=== PATIENT | female | born 1965 | race Caucasian/White ===

== ENCOUNTER 2016-07-13 13:08 | Emergency (ER) | payer MEDICAID ==
[2016-07-13 13:09] VITALS: BMI 26.9
[2016-07-13 13:21] VITALS: RESP 16
[2016-07-13 13:46] VITALS: BP 108/59; PULSE 68; TEMP 97.2; O2SAT 100
[2016-07-13] MEDS ORDERED: guaiFENesin 100 mg/5 ml Syrup UD PO STA (13:57)
--- NOTE | 2016-07-13 13:59 | C.PDOC ---
History Of Present Illness 51 y/o female presents to ED with complaint of digitally and positionally reproducible right sided chest wall pain onset yesterday. Patient reports she had a cough last week which has since resolved. Denies fever, chills, rash, SOB , nausea, vomiting, or other associated symptoms. Time Seen by Provider: 07/13/16 13:48 Chief Complaint (Nursing): Chest Pain History Per: Patient History/Exam Limitations: no limitations Onset/Duration Of Symptoms: Days Current Symptoms Are (Timing): Still Present Quality: "Pain" Associated Symptoms: denies: Dyspnea, Diaphoresis Exacerbating Factors: Movement Recent travel outside of the [place]: No Past Medical History Reviewed: Historical Data, Nursing Documentation, Vital Signs Vital Signs: Last Vital Signs Temp 97.2 F L 07/13/16 13:42 Pulse 68 07/13/16 13:42 Resp 16 07/13/16 13:42 BP 108/59 L 07/13/16 14:12 Pulse Ox 100 07/13/16 13:59 - Medical History PMH: Asthma, Diabetes, HTN, Hypercholesterolemia, Hypothyroidism - [facility] Procedures COLONOSCOPY (08/23/14) PHYSICAL THERAPY NEC (11/05/13) Family History: States: Unknown Family Hx - Social History Hx Tobacco Use: No Hx Alcohol Use: No Hx Substance Use: No - Immunization History Hx Tetanus Toxoid Vaccination: No Hx Influenza Vaccination: No Hx Pneumococcal Vaccination: No Review Of Systems Except As Marked, All Systems Reviewed And Found Negative. Constitutional: Negative for: Fever, Chills Respiratory: Negative for: Cough (resolved), Shortness of Breath, Wheezing Gastrointestinal: Negative for: Nausea, Vomiting, Abdominal Pain Musculoskeletal: Positive for: Other (right sided chest wall pain ) Skin: Negative for: Rash Physical Exam - Physical Exam Appears: Non-toxic, No Acute Distress Skin: Normal Color, Warm, Dry, No Rash Head: Atraumatic, Normacephalic Chest: Symmetrical, Tenderness (digitally reproducible tenderness to R T2 area ) Cardiovascular: Rhythm Regular, No Murmur Respiratory: Normal Breath Sounds, No Accessory Muscle Use, No Rales, No Rhonchi , No Wheezing Gastrointestinal/Abdominal: Soft, No Tenderness Back: Normal Inspection Extremity: Normal ROM, Capillary Refill (< 2 sec. ) Neurological/Psych: Oriented x3, Normal Speech, Normal Cognition ED Course And Treatment ECG: Interpreted By Me ECG Rhythm: Sinus Rhythm ECG Interpretation: Normal Rate From EC (bpm) O2 Sat by Pulse Oximetry: 100 (RA) Pulse Ox Interpretation: Normal Medical Decision Making Medical Decision Making: mild cough last week, resolved- mild R upper anterior chest discomfort is positionally and digitally reproducable normal EKG and lung exam, without rash, c/w costochondritis. Disposition Doctor Will See Patient In The: Office Counseled Patient/Family Regarding: Studies Performed, Diagnosis - Disposition Referrals: Amy Mc MD [Medical Doctor] - Disposition: HOME/ ROUTINE Disposition Time: 13:59 Condition: GOOD Additional Instructions: ice packs 1/2 hour per hour, nothing hot. Motrin 400-600 mg every 6 hours as needed Continue Mucinex cough medicines as needed- per package instructions. follow-up with Dr. Mc as needed. Instructions: Costochondritis (ED) - Clinical Impression Clinical Impression: Chest discomfort - Scribe Statement The provider has reviewed the documentation as recorded by the Jimenez Rios Provider Attestation: All medical record entries made by the Jimenez were at my direction and personally dictated by me. I have reviewed the chart and agree that the record accurately reflects my personal performance of the history, physical exam, medical decision making, and the department course for this patient. I have also personally directed, reviewed, and agree with the discharge instructions and disposition.
[2016-07-13] MEDS ORDERED: guaiFENesin 100 mg/5 ml Syrup UD ONE (14:18)
--- NOTE | 2016-07-18 13:56 | CARD ---
APPROVED REPORT EKG Measurement Heart [id number] CA 140P55 [id number] <Conclusion> Normal sinus rhythm Possible Left atrial enlargement Nonspecific T wave abnormality Abnormal ECG
== END 2016-07-13 14:28 | disposition home or self-care (01) ==
LOC: C.ER 13:08
DX: R07.89 Other chest pain (principal)

== ENCOUNTER 2016-09-22 11:36 | Emergency (ER) | payer MEDICAID ==
[2016-09-22 11:37] VITALS: BMI 26.9
[2016-09-22 11:49] VITALS: TEMP 97.3
[2016-09-22] MEDS ORDERED: Sodium Chloride 0.9% 1,000 ML IV ONE (12:04)
[2016-09-22] MEDS ORDERED: (Novolin R) Insulin Human Regular 100 units/ml vial IV ONE (12:06)
[2016-09-22] MEDS ORDERED: Sodium Chloride 0.9% 1,000 ML ONE (12:22)
[2016-09-22] MEDS ORDERED: (Novolin R) Insulin Human Regular 100 units/ml vial ONE (12:22)
[2016-09-22 12:26] LABS: BASO # 0.1 K/uL (0.0-0.2); BASO % 0.8 % (0.0-2.0); EOS # 0.4 K/uL (0.0-0.7); EOS % 4.3 % (0.0-4.0); HEMATOCRIT 41.8 % (34.0-47.0); LYMPH # 3.2 K/uL (1.0-4.3); LYMPH % 37.7 % (20.0-40.0); MEAN CELL VOLUME 89.3 fL (81.0-99.0); MEAN CORPUSCULAR HEMOGLOBIN 30.5 pg (27.0-31.0); MEAN CORPUSCULAR HGB CONC 34.2 g/dL (33.0-37.0); MEAN PLATELET VOLUME 9.2 fL (7.2-11.7); MONO # 0.5 K/uL (0.0-0.8); MONO % 6.1 % (0.0-10.0); RED CELL DISTRIBUTION WIDTH 12.9 % (11.5-14.5); WHITE BLOOD COUNT 8.6 K/uL (4.8-10.8)
[2016-09-22 12:32] LABS: URINE BACTERIA RARE (<OCC); URINE BILIRUBIN NEGATIVE (NEGATIVE); URINE BLOOD 1+ (NEGATIVE); URINE COLOR Yellow (YELLOW); URINE GLUCOSE (UA) 3+ mg/dL (Normal); URINE KETONE NEGATIVE (NEGATIVE); URINE LEUKOCYTE ESTERASE TRACE Leu/uL (Negative); URINE PROTEIN NEGATIVE (NEGATIVE); URINE UROBILINOGEN NORMAL mg/dL (0.2-1.0); WBC URINE 2 /hpf (0-5)
--- NOTE | 2016-09-22 12:32 | C.PDOC ---
History Of Present Illness Patient is a 51 y/o female that presents to the ED for evaluation of elevated blood sugar level at home this morning. Patient reports taking her regular dose of Metformin this morning, but states her sugar level still remained high, and was noted to be 348 in triage. Patient also reports vaginal discomfort including itchiness, and pain upon urination for the past week. Otherwise, denies any vaginal discharge, fever, chills, abdominal pain, headache, dizziness , or any other associated symptoms at this time. PMD:Dr. Amy Mc Time Seen by Provider: 09/22/16 11:57 Chief Complaint (Nursing): High Blood Sugar History Per: Patient History/Exam Limitations: no limitations Onset/Duration Of Symptoms: Days (1 week) Current Symptoms Are (Timing): Still Present Severity: None Pain Scale Rating Of: 0 Current Diabetic Medications: Oral Medication (Metformin) Associated Infectious Symptoms: Dysuria. denies: Cough, Sore Throat, Sinus Congestion, Urinary Urgency, Urinary Frequency, Nausea, Vomiting, Diarrhea Treatment Prior To Provider Evaluation: Accucheck Recent travel outside of the [place]: No Additional History Per: Patient Past Medical History Reviewed: Historical Data, Nursing Documentation, Vital Signs Vital Signs: Last Vital Signs Temp 97.3 F L 09/22/16 11:47 Pulse 71 09/22/16 13:54 Resp 18 09/22/16 13:54 BP 100/62 09/22/16 13:54 Pulse Ox 96 09/22/16 13:54 - Medical History PMH: Asthma, Diabetes, HTN, Hypercholesterolemia, Hypothyroidism Denies: Chronic Kidney Disease - [facility] Procedures COLONOSCOPY (08/23/14) PHYSICAL THERAPY NEC (11/05/13) Family History: States: Unknown Family Hx - Social History Hx Tobacco Use: No Hx Alcohol Use: No Hx Substance Use: No - Immunization History Hx Tetanus Toxoid Vaccination: No Hx Influenza Vaccination: No Hx Pneumococcal Vaccination: No Review Of Systems Except As Marked, All Systems Reviewed And Found Negative. Constitutional: Negative for: Fever, Chills Cardiovascular: Negative for: Chest Pain, Palpitations Respiratory: Negative for: Shortness of Breath Gastrointestinal: Negative for: Nausea, Vomiting, Abdominal Pain, Diarrhea Genitourinary: Positive for: Dysuria, Other (itchiness to vagina). Negative for : Frequency, Incontinence, Hematuria, Vaginal Discharge, Vaginal Bleeding, Pelvic Pain Musculoskeletal: Negative for: Back Pain Neurological: Negative for: Headache, Dizziness Physical Exam - Physical Exam Appears: Non-toxic, No Acute Distress Skin: Normal Color, Warm, Dry Head: Atraumatic, Normacephalic Eye(s): bilateral: Normal Inspection, EOMI Neck: Normal ROM, Supple Chest: Symmetrical Cardiovascular: Rhythm Regular, No Murmur Respiratory: Normal Breath Sounds, No Rales, No Rhonchi, No Wheezing Gastrointestinal/Abdominal: Soft, No Tenderness Extremity: Normal ROM Neurological/Psych: Oriented x3, Normal Speech, Normal Cognition ED Course And Treatment - Laboratory Results Result Diagrams: 09/22/16 12:23 09/22/16 12:23 Lab Interpretation: Abnormal O2 Sat by Pulse Oximetry: 98 (on RA) Pulse Ox Interpretation: Normal Progress Note: Labs ordered and reviewed. Patient was treated with IV fluids, and Insulin IV. Labs show hyperglycemia, no acidosis or ketones to suggest DKA. Lab repeated and improvement of glucose. On reassessment, patient is resting comfortably, no acute distress. Patient advised to continue with medications and to follow up with PCP Disposition Counseled Patient/Family Regarding: Studies Performed, Diagnosis, Need For Followup - Disposition Referrals: Amy Mc MD [Medical Doctor] - Disposition: HOME/ ROUTINE Disposition Time: 13:43 Condition: STABLE Additional Instructions: Continue taking your usual diabetic medications Follow up with your primary medical doctor or clinic in 2-5 days for further evaluation. Return to the emergency department at any time if symptoms persist or worsen. 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 - Scribe Statement The provider has reviewed the documentation as recorded by the Vanessaibe Elba Velasquez All medical record entries made by the Jimenez were at my direction and personally dictated by me. I have reviewed the chart and agree that the record accurately reflects my personal performance of the history, physical exam, medical decision making, and the department course for this patient. I have also personally directed, reviewed, and agree with the discharge instructions and disposition.
[2016-09-22 12:34] LABS: RBC URINE 5 /hpf (0-3)
[2016-09-22 12:37] LABS: CHLORIDE 99 mmol/L (98-107); SODIUM 134 mmol/L (132-148)
[2016-09-22 12:38] LABS: POTASSIUM 4.1 mmol/L (3.6-5.2)
[2016-09-22 12:40] LABS: ALB/GLOB RATIO 1.4 (1.0-2.1); ALKALINE PHOSPHATASE 95 U/L (38-126); ALT/SGPT 24 U/L (9-52); AST/SGOT 29 U/L (14-36); BILIRUBIN,TOTAL 1.1 mg/dL (0.2-1.3); BLOOD UREA NITROGEN 13 mg/dL (7-17); CARBON DIOXIDE 21 mmol/L (22-30); GFR AFRICAN-AMERICAN > 60; GLUCOSE,RANDOM 289 mg/dL (65-105); TOTAL PROTEIN 6.9 g/dL (6.3-8.3)
[2016-09-22 12:41] LABS: CALCIUM 8.7 mg/dl (8.6-10.4)
[2016-09-22 13:55] VITALS: BP 100/62; PULSE 71; RESP 18
[2016-09-22 17:39] VITALS: O2SAT 98
== END 2016-09-22 13:55 | disposition home or self-care (01) ==
LOC: C.ER 11:36
DX: E11.65 Type 2 diabetes mellitus with hyperglycemia (principal); I10 Essential (primary) hypertension; E78.00 Pure hypercholesterolemia, unspecified; E03.9 Hypothyroidism, unspecified
CPT/HCPCS: 80053; 81001; 82009; 82948; 85025; 96360; 99285; J7040

== ENCOUNTER 2017-04-27 12:58 | Emergency (ER) | payer MEDICAID ==
[2017-04-27 12:58] VITALS: BMI 26.9
[2017-04-27] MEDS ORDERED: Albuterol-Ipratrop 3 mg / 0.5 (3 ml) UD INH STA ×2 (14:04→14:41)
[2017-04-27] MEDS ORDERED: Albuterol-Ipratrop 3 mg / 0.5 (3 ml) UD ONE ×2 (14:18→14:51)
[2017-04-27 16:09] VITALS: BP 102/63; PULSE 99; RESP 18; TEMP 98; O2SAT 99
--- NOTE | 2017-04-27 16:11 | C.PDOC ---
Time Seen by Provider: 04/27/17 13:51 Chief Complaint (Nursing): Cough, Cold, Congestion Past Medical History Vital Signs: Last Vital Signs Temp 98 F 04/27/17 16:08 Pulse 99 H 04/27/17 16:08 Resp 18 04/27/17 16:08 BP 102/63 04/27/17 16:08 Pulse Ox 99 04/27/17 16:12 - Medical History PMH: Asthma, Diabetes, HTN, Hypercholesterolemia, Hypothyroidism Denies: Chronic Kidney Disease - [facility] Procedures COLONOSCOPY (08/23/14) PHYSICAL THERAPY NEC (11/05/13) Family History: States: Unknown Family Hx - Social History Hx Tobacco Use: No Hx Alcohol Use: No Hx Substance Use: No - Immunization History Hx Tetanus Toxoid Vaccination: No Hx Influenza Vaccination: Yes Hx Pneumococcal Vaccination: No ED Course And Treatment O2 Sat by Pulse Oximetry: 99 Medical Decision Making Medical Decision Making: pt with cough and wheeze. rhinorrhea dfor 2 weeks, Disposition - Disposition Referrals: Vlad Gonzalez MD [Non-Staff] - Disposition: HOME/ ROUTINE Disposition Time: 16:10 Condition: IMPROVED Instructions: Asthma (ED), Upper Respiratory Infection (ED) Forms: [facility] ([place]), General Discharge Instructions - Clinical Impression Clinical Impression: Upper respiratory infection, Asthma exacerbation
--- NOTE | 2017-04-27 16:15 | C.PDOC ---
History Of Present Illness 52 y/o female with past medical history of asthma and hypothyroidism presents to the ED complaining of cough x 2 weeks. Patient reports that her body hurts when she coughs. Patient has runny nose but denies fever, chills or any further medical complaints. Patient states that she has taken flu vaccine. Time Seen by Provider: 04/27/17 13:51 Chief Complaint (Nursing): Cough, Cold, Congestion History Per: Patient History/Exam Limitations: no limitations Onset/Duration Of Symptoms: Other (x2 weeks) Current Symptoms Are (Timing): Still Present Past Medical History Reviewed: Historical Data, Nursing Documentation, Vital Signs Vital Signs: Last Vital Signs Temp 98 F 04/27/17 16:08 Pulse 99 H 04/27/17 16:08 Resp 18 04/27/17 16:08 BP 102/63 04/27/17 16:08 Pulse Ox 99 04/30/17 18:03 - Medical History PMH: Asthma, Diabetes, HTN, Hypercholesterolemia, Hypothyroidism Denies: Chronic Kidney Disease - [facility] Procedures COLONOSCOPY (08/23/14) PHYSICAL THERAPY NEC (11/05/13) Family History: States: Unknown Family Hx - Social History Hx Tobacco Use: No Hx Alcohol Use: No Hx Substance Use: No - Immunization History Hx Tetanus Toxoid Vaccination: No Hx Influenza Vaccination: Yes Hx Pneumococcal Vaccination: No Review Of Systems Constitutional: Positive for: Other (Body ache). Negative for: Fever, Chills ENT: Positive for: Nose Discharge (Runny nose) Respiratory: Positive for: Cough Neurological: Negative for: Weakness, Numbness Physical Exam - Physical Exam Appears: Other (Patient appears uncomfortable and unwell) Skin: Normal Color, Warm, Dry Head: Atraumatic, Normacephalic Eye(s): bilateral: Normal Inspection Nose: Normal, No Discharge Neck: Supple Chest: Symmetrical, No Deformity Cardiovascular: Rhythm Regular, No Murmur Respiratory: Wheezing (Scattered wheezing) Gastrointestinal/Abdominal: Soft, No Tenderness Extremity: Normal ROM Neurological/Psych: Oriented x3, Normal Speech, Normal Cognition ED Course And Treatment O2 Sat by Pulse Oximetry: 99 (RA) Pulse Ox Interpretation: Normal Medical Decision Making Medical Decision Making: Time: 14:05 Plan: Tylenol 975mg PO Abluterol/Intratropium 3ml INH Abluterol/Intratropium 3ml INH Prednisone 60mg PO Peak flow pre/post tx Peak flow pre/post tx Scribe Attestation: Documented by Shiv Velasquez acting as a scribe for EVERARDO Suarez. MD Gaona Attestation: All medical record entries made by the Scribe were at my direction and personally dictated by me. I have reviewed the chart and agree that the record accurately reflects my personal performance of the history, physical exam, medical decision making, and the department course for this patient. I have also personally directed, reviewed, and agree with the discharge instructions and disposition. 500 pm pt adds now that she is diabetic on pills and insulin. pt advised that steroids will raise her blood sugar, needs to keep close eye on it . pt feeling better, no wheezing noted on re-exam of lungs. d/c with zpak, steroids and nebulizer/mdi. Disposition Counseled Patient/Family Regarding: Studies Performed, Diagnosis, Need For Followup, Rx Given - Disposition Referrals: Vlad Gonzalez MD [Non-Staff] - Disposition: HOME/ ROUTINE Disposition Time: 16:19 Condition: IMPROVED Additional Instructions: Take medications as prescribed. Your blood sugar may go up from the steroids,. Please pay close attention to that and call your doctor if elevated. Use inhaler and nebulizer machine as prescribed. Prescriptions: Albuterol 0.083% [Albuterol 0.083% Inhal Violette (2.5 mg/3 ml) UD] 2.5 mg IH QID # 50 neb Albuterol HFA [Ventolin HFA 90 mcg/actuation (8 g)] 2 puff IH Q6 #1 inhaler Azithromycin [Z-Damien] 250 mg PO DAILY #6 tab Instructions: Asthma (ED), Upper Respiratory Infection (ED) Forms: General Discharge Instructions, [employer] ([place]) - Clinical Impression Clinical Impression: Upper respiratory infection, Asthma exacerbation
== END 2017-04-27 17:08 | disposition home or self-care (01) ==
LOC: C.ER 12:58
DX: J45.909 Unspecified asthma, uncomplicated (principal); J06.9 Acute upper respiratory infection, unspecified

== ENCOUNTER 2017-08-31 05:39 | Emergency (ER) | payer MEDICAID ==
[2017-08-31 05:40] VITALS: BMI 26.9
[2017-08-31 05:51] VITALS: RESP 18
[2017-08-31] MEDS ORDERED: Sodium Chloride 0.9% 1,000 ML IV ONE (06:07)
[2017-08-31] MEDS ORDERED: Alum-Mag Hydrox-Simethicone Susp (30 mL) PO STA (06:13)
[2017-08-31] MEDS ORDERED: Sodium Chloride 0.9% 1,000 ML ONE (06:19)
[2017-08-31] MEDS ORDERED: Aluminum Hydroxide/Magnesium Hydroxide Susp (30 mL) ONE (06:21)
--- NOTE | 2017-08-31 06:45 | C.PDOC ---
History Of Present Illness Pt woke up from sleep this morning with FB sensation in her throat. She states that she felt nausea and vomited twice with some blood streaking the 2nd time. Time Seen by Provider: 08/31/17 05:57 Chief Complaint (Nursing): ENT Problem History Per: Patient Onset/Duration Of Symptoms: Hrs Current Symptoms Are (Timing): Still Present Quality (Mouth/Throat): Other (FB sensation) Severity: Moderate Past Medical History Reviewed: Historical Data, Nursing Documentation, Vital Signs Vital Signs: Last Vital Signs Temp 97.8 F 08/31/17 05:47 Pulse 88 08/31/17 05:47 Resp 18 08/31/17 05:47 BP 122/81 08/31/17 05:47 Pulse Ox 99 08/31/17 06:45 - Medical History PMH: Asthma, Diabetes, HTN, Hypercholesterolemia, Hypothyroidism Surgical History: No Surg Hx - [facility] Procedures COLONOSCOPY (08/23/14) PHYSICAL THERAPY NEC (11/05/13) Family History: States: Unknown Family Hx - Social History Hx Tobacco Use: No Hx Alcohol Use: No Hx Substance Use: No - Immunization History Hx Tetanus Toxoid Vaccination: No Hx Influenza Vaccination: Yes Hx Pneumococcal Vaccination: No Review Of Systems Except As Marked, All Systems Reviewed And Found Negative. Constitutional: Negative for: Fever, Weakness Cardiovascular: Negative for: Chest Pain Respiratory: Negative for: Shortness of Breath Gastrointestinal: Positive for: Nausea, Vomiting. Negative for: Abdominal Pain , Diarrhea Skin: Negative for: Rash Neurological: Negative for: Weakness, Numbness Physical Exam - Physical Exam Appears: Non-toxic, No Acute Distress Skin: Normal Color, Warm, Dry, No Rash Head: Atraumatic, Normacephalic Eye(s): bilateral: Normal Inspection, PERRL, EOMI Throat: Normal Neck: Normal ROM, Supple Lymphatic: No Adenopathy Cardiovascular: Rhythm Regular Respiratory: Normal Breath Sounds, No Accessory Muscle Use, No Stridor, No Wheezing Gastrointestinal/Abdominal: Soft, No Tenderness Extremity: Normal ROM Neurological/Psych: Oriented x3, Normal Speech, Normal Motor, Normal Sensation ED Course And Treatment - Laboratory Results Result Diagrams: 08/31/17 06:48 O2 Sat by Pulse Oximetry: 99 Pulse Ox Interpretation: Normal Disposition - Disposition Disposition Time: 07:00 Condition: STABLE - Clinical Impression Clinical Impression: Foreign body sensation in throat, Nausea and vomiting Physician Patient Turnover Patient Signed Over To: Jarrell Mohan Handoff Comments: to f/up Soft tissue neck x-rays and labs.
[2017-08-31 06:51] LABS: BASO # 0.1 K/uL (0.0-0.2); BASO % 0.7 % (0.0-2.0); EOS # 0.5 K/uL (0.0-0.7); EOS % 4.8 % (0.0-4.0); HEMOGLOBIN 13.7 g/dL (11.0-16.0); LYMPH # 2.8 K/uL (1.0-4.3); LYMPH % 29.6 % (20.0-40.0); MEAN CELL VOLUME 90.1 fL (81.0-99.0); MEAN CORPUSCULAR HEMOGLOBIN 31.9 pg (27.0-31.0); MEAN CORPUSCULAR HGB CONC 35.5 g/dL (33.0-37.0); MEAN PLATELET VOLUME 8.1 fL (7.2-11.7); MONO # 0.5 K/uL (0.0-0.8); NEUT # 5.8 K/uL (1.8-7.0); NEUT % 59.9 % (50.0-75.0); RBC 4.29 Mil/uL (3.80-5.20); RED CELL DISTRIBUTION WIDTH 13.7 % (11.5-14.5); WHITE BLOOD COUNT 9.6 K/uL (4.8-10.8)
[2017-08-31 07:03] LABS: ALB/GLOB RATIO 1.4 (1.0-2.1); ALBUMIN 4.7 g/dL (3.5-5.0); ALT/SGPT 17 U/L (9-52); AST/SGOT 21 U/L (14-36); BLOOD UREA NITROGEN 20 mg/dL (7-17); CALCIUM 8.9 mg/dl (8.6-10.4); GFR AFRICAN-AMERICAN > 60; GFR NON-AFRICAN AMERICAN > 60
[2017-08-31 07:11] LABS: PROTHROMBIN TIME 10.4 SECONDS (9.7-12.2)
[2017-08-31] MEDS ORDERED: MethylPREDNISolone 40 mg Vial IVP STA (09:16)
[2017-08-31] MEDS ORDERED: MethylPREDNISolone 40 mg Vial ONE (09:33)
[2017-08-31 09:37] VITALS: BP 101/68; PULSE 68; TEMP 98.2; O2SAT 95
--- NOTE | 2017-08-31 12:08 | RAD ---
PROCEDURE: Radiographs of the neck (soft tissue). HISTORY: FB sensation in throat COMPARISON: None. TECHNIQUE: Frontal and Lateral Radiographs of the neck, optimized for soft tissue visualization. FINDINGS: SOFT TISSUES: Unremarkable. No radiopaque foreign body seen. CERVICAL SPINE: Straightened cervical curvature. Multilevel spondylosis appreciated. OTHER FINDINGS: None. IMPRESSION: Unremarkable neck soft tissues as discussed above. If clinical concern remains then consider follow-up neck CT without contrast. Instill degenerative cervical spinal straightening and multilevel spondylosis.
== END 2017-08-31 10:37 | disposition home or self-care (01) ==
LOC: C.ER 05:39
DX: R09.89 Other specified symptoms and signs involving the circulatory and respiratory systems (principal); R11.2 Nausea with vomiting, unspecified; I10 Essential (primary) hypertension; E11.9 Type 2 diabetes mellitus without complications; E78.00 Pure hypercholesterolemia, unspecified
CPT/HCPCS: 70360; 80053; 85025; 85610; 85730; 96374; 96375; 99284; J1885; J2405; J2920; J7040

== ENCOUNTER 2018-08-14 09:03 | Outpatient (CLI) | payer MEDICAID | END 2018-08-14 09:04 | disposition home or self-care (01) | LOC: C.MAMMO 09:03 | DX: Z12.31 Encounter for screening mammogram for malignant neoplasm of breast (principal) ==

== ENCOUNTER 2018-08-22 12:13 | Emergency (ER) | payer MEDICAID ==
[2018-08-22 12:13] VITALS: BMI 26.9
[2018-08-22 12:20] VITALS: RESP 18
--- NOTE | 2018-08-22 12:40 | C.PDOC ---
History Of Present Illness 53 year old female presents to ED stating that 4 days ago a bookcase fell and struck both feet when wearing sandals. Patient complains of pain to both feet, more on the right side. States she took motrin and bengay without any relief. Patient still has pain and noticed some swelling to the right foot. Time Seen by Provider: 08/22/18 12:26 Chief Complaint (Nursing): Lower Extremity Problem/Injury History Per: Patient History/Exam Limitations: no limitations Onset/Duration Of Symptoms: Days Current Symptoms Are (Timing): Still Present Past Medical History Reviewed: Historical Data, Nursing Documentation, Vital Signs Vital Signs: Last Vital Signs Temp 98.1 F 08/22/18 12:17 Pulse 69 08/22/18 12:17 Resp 18 08/22/18 12:17 BP 117/49 L 08/22/18 12:17 Pulse Ox 100 08/22/18 12:17 Primary Care Provider: Clinic,Med Surg - Medical History PMH: Asthma, Diabetes, HTN, Hypercholesterolemia, Hypothyroidism Denies: Chronic Kidney Disease - [facility] Procedures COLONOSCOPY (08/23/14) PHYSICAL THERAPY NEC (11/05/13) Family History: States: No Known Family Hx - Social History Hx Tobacco Use: No Hx Alcohol Use: No Hx Substance Use: No - Immunization History Hx Tetanus Toxoid Vaccination: No Hx Influenza Vaccination: Yes Hx Pneumococcal Vaccination: No Review Of Systems Constitutional: Negative for: Fever, Chills Musculoskeletal: Positive for: Foot Pain (bilaterally, right more than left) Neurological: Negative for: Headache Physical Exam - Physical Exam Appears: Non-toxic, No Acute Distress Skin: Warm, Dry Head: Normacephalic Eye(s): bilateral: Normal Inspection Oral Mucosa: Moist Neck: Supple Extremity: No Deformity, Swelling (swelling to the right distal dorsal foot near the 4th and 5th toes, no ecchymosis, normal ROM), Other (left foot mildly tender, no swelling or ecchymosis) Extremity: Bilateral: Normal ROM Neurological/Psych: Oriented x3, Normal Speech, Normal Motor, Normal Sensation Gait: Steady ED Course And Treatment O2 Sat by Pulse Oximetry: 100 (RA) Pulse Ox Interpretation: Normal Medical Decision Making Medical Decision Making: Plan: --Foot XR bilateral Xray viewed by me and shows fracture to the right 5th phalanx minimally displaced, all other is normal Inform patient of results. Shikha tape applied to toes by me. Ortho cast shoe applied Patient instructed to follow up with podiatry in clinic and take analgesics Disposition Counseled Patient/Family Regarding: Diagnosis, Need For Followup, Rx Given - Disposition Referrals: [facility] [Outside] Disposition: HOME/ ROUTINE Disposition Time: 13:57 Condition: STABLE Additional Instructions: Your xray shows a toe fracture, right pinky toe. It is very important you follow up with podiatry in clinic. Wear orthoe shoe cast and shikha tape toes together. Take pain medication as needed. 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 - Scribe Statement The provider has reviewed the documentation as recorded by the Scribe Melyssa Calabrese All medical record entries made by the Vanessaibangie were at my direction and personally dictated by me. I have reviewed the chart and agree that the record accurately reflects my personal performance of the history, physical exam, medical decision making, and the department course for this patient. I have also personally directed, reviewed, and agree with the discharge instructions and disposition.
[2018-08-22] MEDS ORDERED: Albuterol 0.083% Inhal Sol (2.5 mg/3 mL) UD IH STA (13:08)
[2018-08-22] MEDS ORDERED: Albuterol 0.083% Inhal Sol (2.5 mg/3 mL) UD ONE ×2 (13:12→13:23)
[2018-08-22 14:10] VITALS: BP 109/70; PULSE 70; TEMP 97.8
[2018-08-22 14:57] VITALS: O2SAT 100
--- NOTE | 2018-08-22 15:34 | RAD ---
Date of service: 08/22/2018 PROCEDURE: Bilateral Feet Radiographs. HISTORY: book case fell on feet, c.o pain b/l right side mo COMPARISON: None. TECHNIQUE: 6 views obtained. FINDINGS: BONES: Right Foot: There is an acute mildly displaced fracture in the base of the proximal phalanx of the little finger. Left Foot: No acute displaced fracture or dislocation. JOINTS: Right Foot: Normal. No osteoarthritis. Left Foot: Normal. No osteoarthritis. SOFT TISSUES: Right Foot: Normal. Left Foot: Normal. OTHER FINDINGS: None. IMPRESSION: 1. Acute mildly displaced fracture in the base of the proximal phalanx of the little finger of the right foot. 2. No acute fracture or dislocation in the left foot. The final report is tagged to the PA review folder.
== END 2018-08-22 14:05 | disposition home or self-care (01) ==
LOC: C.ER 12:13
DX: S92.501A Displaced unspecified fracture of right lesser toe(s), initial encounter for closed fracture (principal); W22.8XXA Striking against or struck by other objects, initial encounter; I10 Essential (primary) hypertension; J45.909 Unspecified asthma, uncomplicated